=== PATIENT | male | born 1960 | race African-American/Black ===

== ENCOUNTER 2017-03-19 15:19 | Emergency (ER) | payer OTHER ==
[2017-03-19 15:27] VITALS: BP 165/112; PULSE 89; TEMP 98; BMI 28.6
[2017-03-19] MEDS ORDERED: ACETAMINOPHEN 500 MG TABLET (FP) PO ONE (17:16)
[2017-03-19] MEDS ORDERED: ACETAMINOPHEN 500 MG TABLET (FP) ONE (17:17)
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
== END 2017-03-19 20:01 | disposition home or self-care (01) ==
LOC: JERFT 15:19
DX: S49.81XA Other specified injuries of right shoulder and upper arm, initial encounter (principal); S50.01XA Contusion of right elbow, initial encounter; S80.211A Abrasion, right knee, initial encounter; S50.311A Abrasion of right elbow, initial encounter; V09.29XA Pedestrian injured in traffic accident involving other motor vehicles, initial encounter; Y92.414 Local residential or business street as the place of occurrence of the external cause; Y93.89 Activity, other specified
CPT/HCPCS: 73030-TC-RT; 73060-TC-RT; 73070-TC-RT; 99281-25

== ENCOUNTER 2018-12-02 00:08 | Emergency (ER) | payer OTHER ==
[2018-12-02] MEDS ORDERED: CYCLOBENZAPRINE HCL 10 MG TABLET (FP) PO ONE (01:12)
[2018-12-02] MEDS ORDERED: KETOROLAC TROMETHAMINE 60 MG/2 ML VIAL IM ONE (01:12)
[2018-12-02 01:18] VITALS: BP 140/98; PULSE 71; TEMP 97.8; BMI 29.1
--- NOTE | 2018-12-02 01:20 | PDOC ---
Medical Decision Making - Medical Decision Making 12/02/18 01:18 Patient seen by the advanced practice provider under my direct supervision. Ancillary testing reviewed as necessary. I agree with plan as outlined by the advanced practice provider. *DC/Admit/Observation/Transfer Diagnosis at time of Disposition: Sciatica - Discharge Dispostion Condition at time of disposition: Fair - Referrals Referrals: Gautam Skinner [Primary Care Provider] - - Patient Instructions - Post Discharge Activity
[2018-12-02] MEDS ORDERED: KETOROLAC TROMETHAMINE 60 MG/2 ML VIAL ONE (01:22)
[2018-12-02] MEDS ORDERED: CYCLOBENZAPRINE HCL 10 MG TABLET (FP) ONE (01:22)
--- NOTE | 2018-12-02 01:26 | PDOC ---
History of Present Illness - General Chief Complaint: Pain, Acute Stated Complaint: PAIN,LT LEG/BACK Time Seen by Provider: 12/02/18 01:09 History Source: Patient Exam Limitations: Clinical Condition - History of Present Illness Initial Comments: 12/02/18 01:22 Patient with history of hypertension and diabetes present with complaint of five -day history of worsening left lower back pain radiating to posterior left thigh area. Patient reported history of herniated disc with chronic back pains but has been under control with NSAIDs. Patient denies any new injury or trauma to back. Patient denies urinary frequency, dysuria, burning with urination, nausea or vomiting. Patient denies fever, chills. Patient denies any other symptoms Timing/Duration: getting worse, other (5 days) Past History - Past Medical History Allergies/Adverse Reactions: Allergies Allergy/AdvReac Type Severity Reaction Status Date / Time No Known Allergies Allergy Verified 12/02/18 01:18 Home Medications: Ambulatory Orders Sitagliptin Phosphate [Januvia] 100 mg PO DAILY 07/23/12 Oxycodone HCl/Acetaminophen [Percocet 5-325 mg Tablet] 1 - 2 tab PO Q4H Albuterol Sulfate [Proair Hfa -] 1 - 2 inh PO TID 01/05/15 Amlodipine Besylate [Norvasc -] 10 mg PO DAILY #30 tablet 01/05/15 Budesonide/Formeterol Fumarate [SYMBICORT 160/4.5mcg -] 1 inh PO BID 01/05/15 Diphenhydramine HCl [Benadryl Capsule -] 25 mg PO Q6H PRN 01/05/15 Hydrochlorothiazide [Hctz -] 25 mg PO DAILY #30 tablet 01/05/15 Methimazole [Tapazole] 10 mg PO DAILY 01/05/15 Multivitamins [Multivit ([facility])] 1 tab PO DAILY 01/05/15 Oseltamivir Phosphate [Tamiflu -] 75 mg PO BID #10 capsule 12/12/15 Naproxen [Naprosyn -] 500 mg PO BID PRN #14 tablet MDD 2 03/19/17 Methylprednisolone [Medrol Dose [place]] 4 mg PO ASDIR #21 tablet 12/02/18 Naproxen 500 mg PO BID PRN #20 tablet 12/02/18 Oxycodone HCl/Acetaminophen [Percocet 5-325 mg Tablet] 1 tab PO Q6H PRN #5 tablet MDD 3 12/02/18 Anemia: No Diabetes: Yes HTN: Yes - Suicide/Smoking/Psychosocial Hx Smoking Status: Yes Smoking History: Current every day smoker Have you smoked in the past 12 months: Yes Number of Cigarettes Smoked Daily: 10 Information on smoking cessation initiated: No 'Breaking Loose' booklet given: 12/12/15 Hx Alcohol Use: Yes Drug/Substance Use Hx: No Substance Use Type: None Review of Systems - Review of Systems Able to Perform ROS?: Yes Is the patient limited Uzbek proficient: No Constitutional: Yes: Other (severe lower back pain) HEENTM: No: Symptoms Reported Respiratory: No: Symptoms reported, See HPI, Cough, Orthopnea, Shortness of Breath, SOB with Exertion, SOB at Rest, Stridor, Wheezing, Productive cough, Hemoptysis, Other Cardiac (ROS): No: Symptoms Reported, See HPI, Chest Pain, Edema, Irregular Heart Rate, Lightheadedness, Palpitations, Syncope, Chest Tightness, Other ABD/GI: No: Constipated, Diarrhea, Nausea, Vomiting, Abdominal cramping : No: Burning, Dysuria, Frequency, Flank Pain, Urgency, Testicular Mass, Testicular Pain Musculoskeletal: Yes: See HPI, Back Pain (lefr lower back radiating to posterior left thigh), Muscle Pain (left lower back) Neurological: No: Numbness, Paresthesia, Tingling, Dizziness All Other Systems: Reviewed and Negative *Physical Exam - Vital Signs Last Vital Signs Temp Pulse Resp BP Pulse Ox 97.8 F 71 19 140/98 99 12/02/18 00:08 12/02/18 00:08 12/02/18 00:08 12/02/18 00:08 12/02/18 00:08 - Physical Exam Comments: 12/02/18 01:28 GENERAL: Well developed, well nourished. Awake and alert in moderate acute distress hold left lower back. CARDIOVASCULAR: Regular rate and rhythm. No murmurs, rubs, or gallops. PULMONARY: No evidence of respiratory distress. Lungs clear to auscultation bilaterally. No wheezing, rales or rhonchi. ABDOMINAL: Soft. Non-tender. Non-distended. No rebound or guarding. No organomegaly. Normoactive bowel sounds MUSCULOSKELETAL : moderate tenderness over posterior paravertebral muscle of lumbosacral spine of L4-S1 on left sides. negative straight leg raise. No bony deformities EXTREMITIES: No cyanosis. No clubbing. No edema. SKIN: Warm and dry. Normal capillary refill. NEUROLOGICAL: Alert, awake, appropriate. No motor deficits in the lower extremities. Gait is normal without ataxia with walking stick. PSYCHIATRIC: Cooperative. Good eye contact. Appropriate mood and affect. General Appearance: Yes: Nourished, Appropriately Dressed, Moderate Distress Moderate Sedation - Procedure Monitoring Vital Signs: Procedure Monitoring Vital Signs Temperature 97.8 F 12/02/18 00:08 Pulse Rate 71 12/02/18 00:08 Respiratory Rate 19 12/02/18 00:08 Blood Pressure 140/98 12/02/18 00:08 O2 Sat by Pulse Oximetry (%) 99 12/02/18 00:08 ED Treatment Course - RADIOLOGY Radiology Studies Ordered: Category Date Time Status SPINE-LUMBAR SACRAL [RAD] Stat Radiology 12/02/18 01:12 Ordered Medical Decision Making - Medical Decision Making 12/02/18 01:32 Patient with history of hypertension and diabetes present with complaint of five -day history of worsening left lower back pain radiating to posterior left thigh area. Patient reported history of herniated disc with chronic back pains but has been under control with NSAIDs. Patient denies any new injury or trauma to back. Patient in acute distress complaining of severe back pains. Exam significant for moderate tenderness over posterior paravertebral muscle of lumbosacral spine of L4-S1 on left sides. negative straight leg raise. No bony deformities . Patient symptoms likely sciatica. Toradol IM and flexiril PO given for pain. UA, urine culture ordered. x-ray of lumbasacral spine ordered. spiral CT ordered to r/o kidney stone 12/02/18 03:[address] shows no acute abdominal pathology. CT shows multiple buldging disc of L3-L4,L4-L5 with herniated disc . Patient symptoms likely muscoloskeletal with back spasm causing sciatica. Patient report still having pains with Toradol. Patient given 2 tabs of Percocet and dacadron 10mg . Patient stable for discharge and being taken home by with orthopedics follow-up *DC/Admit/Observation/Transfer Diagnosis at time of Disposition: Sciatica Qualifiers: Laterality: left Qualified Code(s): M54.32 - Sciatica, left side Lumbago Qualifiers: Chronicity: chronic Back pain laterality: left Sciatica presence: with sciatica Sciatica laterality: sciatica of right side Qualified Code(s): M54.41 - Lumbago with sciatica, right side - Discharge Dispostion Disposition: HOME Condition at time of disposition: Stable Decision to Admit order: No - Prescriptions Prescriptions: Methylprednisolone [Medrol Dose [place]] 4 mg PO ASDIR #21 tablet Naproxen 500 mg PO BID PRN #20 tablet PRN Reason: Back Pain Oxycodone HCl/Acetaminophen [Percocet 5-325 mg Tablet] 1 tab PO Q6H PRN #5 tablet MDD 3 PRN Reason: severe back pain - Referrals Referrals: Gautam Skinner [Primary Care Provider] - Xiang Tipton MD, FAANS [Staff Physician] - - Patient Instructions Printed Discharge Instructions: DI for Back Pain With Sciatica Additional Instructions: Your CATS scan showed no kidney stones. Cat scan shows multiple bulging disc which could be the cause of your back pain. Take prescribed medications as needed for pain. Apply heat therapy to lower back 2-3 times/ day as needed for 5 -10mins. Follow up with referred orthopedics management development specialist - Post Discharge Activity
[2018-12-02] MEDS ORDERED: DEXAMETHASONE SOD PHOSPHATE 10 MG/1 ML VIAL IM ONE (03:16)
[2018-12-02] MEDS ORDERED: DEXAMETHASONE SOD PHOSPHATE 10 MG/1 ML VIAL ONE (03:23)
== END 2018-12-02 05:02 | disposition home or self-care (01) ==
LOC: JER 00:08
PROC: 3E0233Z Introduction of Anti-inflammatory into Muscle, Percutaneous Approach (ICD-10-PCS; principal; 2018-12-02)
PROC: 3E023NZ Introduction of Analgesics, Hypnotics, Sedatives into Muscle, Percutaneous Approach (ICD-10-PCS; 2018-12-02)
DX: M54.42 Lumbago with sciatica, left side (principal); I10 Essential (primary) hypertension; E11.9 Type 2 diabetes mellitus without complications
CPT/HCPCS: 72100-TC-FY; 74176; 99282-25; J1100

== ENCOUNTER 2019-07-10 13:00 | Emergency (ER) | payer OTHER ==
[2019-07-10 13:13] VITALS: TEMP 98.1; BMI 27.7
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
[2019-07-10] MEDS ORDERED: morphine CARPU-JECT 4 MG/1 ML DISP.SYRIN IVPUSH ONE (14:01)
[2019-07-10] MEDS ORDERED: morphine SULFATE 4 MG/ML VIAL ONE (14:02)
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
[2019-07-10] MEDS ORDERED: amLODIPine BESYLATE 10 MG TABLET (FP) PO ONE (17:41)
[2019-07-10] MEDS ORDERED: amLODIPine BESYLATE 5 MG TABLET (FP) ONE (18:12)
[2019-07-10 19:16] VITALS: PULSE 76
[2019-07-10] MEDS ORDERED: LABETALOL HCL 100 MG TABLET (FP) PO ONE (19:59)
[2019-07-10] MEDS ORDERED: HYDROCHLOROTHIAZIDE 25 MG TABLET (FP) PO ONE (19:59)
[2019-07-10] MEDS ORDERED: LABETALOL HCL 100 MG TABLET (FP) ONE (20:14)
[2019-07-10] MEDS ORDERED: HYDROCHLOROTHIAZIDE 25 MG TABLET (FP) ONE (20:14)
[2019-07-10 21:22] VITALS: BP 172/105
[2019-07-10] MEDS ORDERED: ACETAMINOPHEN 500 MG TABLET (FP) PO STA (21:27)
[2019-07-10] MEDS ORDERED: ACETAMINOPHEN 325 MG TABLET (FP) ONE (21:28)
== END 2019-07-10 21:32 | disposition home or self-care (01) ==
LOC: JER 13:00
PROC: 3E033NZ Introduction of Analgesics, Hypnotics, Sedatives into Peripheral Vein, Percutaneous Approach (ICD-10-PCS; principal; 2019-07-10)
DX: M25.552 Pain in left hip (principal); M54.5 Low back pain; V00.831A Fall from motorized mobility scooter, initial encounter; Y92.414 Local residential or business street as the place of occurrence of the external cause; Y93.89 Activity, other specified; Y99.8 Other external cause status; I10 Essential (primary) hypertension; E11.9 Type 2 diabetes mellitus without complications; Z79.84 Long term (current) use of oral hypoglycemic drugs; F17.210 Nicotine dependence, cigarettes, uncomplicated
CPT/HCPCS: 70450-TC; 72131-TC; 72170-TC-FY; 73502-TC-LT-FY; 73502-TC-RT-FY; 96374; 99283-25